=== PATIENT | female | born 1960 ===

== ENCOUNTER 2017-08-29 06:40 | Day surgery (SDC) | payer OTHER ==
[~2017-08-29 06:40] MED LIST: LOSARTAN-HCTZ1 EAC1 PO; ULTRACET PO; VASOTEC20 M1 PO
== END 2017-08-29 11:58 | disposition home or self-care (01) ==
LOC: CIR.AMB 06:40
DX: C21.1 Malignant neoplasm of anal canal (principal); K62.89 Other specified diseases of anus and rectum
CPT/HCPCS: 36561; C1751